=== PATIENT | male | born 1960 | race Caucasian/White ===

== ENCOUNTER 2018-03-25 12:33 | Emergency (ER) | payer MEDICARE ==
[2018-03-25 13:02] VITALS: PULSE 71
[2018-03-25 13:34] VITALS: O2SAT 100
[2018-03-25] MEDS ORDERED: Phenergan 25 MG INJ IM ONE (13:39)
[2018-03-25] MEDS ORDERED: Hydromorphone 1 mg/ml Ampule IM ONE (13:39)
--- NOTE | 2018-03-25 13:39 | ERPHSYRPT ---
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 pt states knott present x 2 weeks same knott as his normal cluster knott. pt arrives p/w/d resp easy a @ox3 Physician History: 57 y/o white male with h/o cluster headache, presents with worsening headache over a 2 week period of time. usually, clears up with oxygen therapy. however, pt out of oxygen and cannot find a company to fill his own tanks. he has rx for oxygen. sx worsenig to include pain and vomiting. denies being the worst headache he has ever had. denies head injury. Timing/Duration: week(s) (2), worse Quality: throbbing Head Pain Location: global Severity of Pain-Max: moderate Severity of Pain-Current: moderate Recent Head Trauma: no recent headache/trauma, chronic headaches Modifying Factors: Improves With: exposure to light (worsens) Associated Symptoms: nausea/vomiting, sensitive to light, No confusion, No dizziness, No fatigue, No facial pain, No fever/chills, No flushing, No light- headedness, No loss of consciousness, No nasal congestion, No nasal drainage, No neck pain, No seizures, No speech problems, No stiff neck, No visual disturbance, No weakness Previous symptoms: same symptoms as today Allergies/Adverse Reactions: codeine Adverse Reaction (Verified 03/25/18 13:02) Home Medications: Alprazolam [Xanax] 0.5 mg PO BID 03/25/18 [History] Citalopram Hydrobromide [Citalopram HBr] 20 mg PO DAILY 03/25/18 [History] Dronabinol [Marinol] 5 mg PO BID 03/25/18 [History] Esomeprazole Magnesium [Nexium] 40 mg PO DAILY 03/25/18 [History] Gabapentin 300 mg PO TID 03/25/18 [History] Rosuvastatin Calcium [Crestor] 20 mg PO DAILY 03/25/18 [History] Verapamil HCl Sr 240 mg [Isoptin S.r. 240 mg] 240 mg PO DAILY 03/25/18 [ History] Hx Influenza Vaccination/Date Given: No - Review of Systems Constitutional: No Symptoms Eyes: Photophobia Ears, Nose, & Throat: No Symptoms Respiratory: No Symptoms Cardiac: No Symptoms Abdominal/Gastrointestinal: Nausea, Vomiting Genitourinary Symptoms: No Symptoms, No Dysuria, No Frequency, No Hematuria Musculoskeletal: No Symptoms, No Arthralgias, No Back Pain, No Neck Pain Skin: No Symptoms Neurological: No Symptoms Psychological: No Symptoms Endocrine: No Symptoms Hematologic/Lymphatic: No Symptoms Immunological/Allergic: No Symptoms All Other Systems: Reviewed and Negative - Past Medical History Pertinent Past Medical History: Yes Neurological History: Migraines, Other ENT History: No Pertinent History Cardiac History: No Pertinent History Respiratory History: No Pertinent History Endocrine Medical History: No Pertinent History Musculoskeletal History: No Pertinent History GI Medical History: No Pertinent History History: No Pertinent History Psycho-Social History: No Pertinent History Male Reproductive Disorders: No Pertinent History Other Medical History: cluster knott - Past Surgical History Past Surgical History: Yes Neuro Surgical History: No Pertinent History Cardiac: No Pertinent History Respiratory: No Pertinent History Gastrointestinal: No Pertinent History Genitourinary: No Pertinent History Other Surgical History: righ knee - Social History Smoking Status: Current every day smoker - Nursing Vital Signs Nursing Vital Signs: Initial Vital Signs Temperature 98.1 F 03/25/18 12:54 Pulse Rate 71 03/25/18 12:54 Respiratory Rate 16 03/25/18 12:54 Blood Pressure 142/90 03/25/18 12:54 O2 Sat by Pulse Oximetry 92 L 03/25/18 12:54 Pain Scale Pain Intensity 3 - Physical Exam General Appearance: moderate distress, alert, anxiety, thin Eye Exam: PERRL/EOMI, eyes nml inspection Ears, Nose, Throat Exam: normal ENT inspection, TMs normal, moist mucous membranes Neck Exam: normal inspection, non-tender, supple, full range of motion Respiratory Exam: normal breath sounds, lungs clear, airway intact, No respiratory distress, No accessory muscle use, No rhonchi, No wheezing, No stridor Cardiovascular Exam: regular rate/rhythm, normal heart sounds, normal peripheral pulses Gastrointestinal/Abdominal Exam: soft, normal bowel sounds, No tenderness, No distention, No mass, No guarding, No rebound Back Exam: normal inspection, normal range of motion, CVA tenderness Extremity Exam: normal inspection, normal range of motion, pelvis stable Mental Status Exam: alert, oriented x 3, cooperative tire repair mechanic Exam: normal hearing, normal speech, PERRL Coordination/Gait Exam: normal finger to nose, normal gait Motor/Sensory Exam: no motor deficit, no sensory deficit, no pronator drift Skin Exam: normal color, warm, dry Lymphatic Exam: adenopathy SpO2 Interpretation: normal SpO2: 100 Oxygen Delivery: Room Air - Course Nursing assessment & vital signs reviewed: Yes Ordered Tests: Medication Summary Discontinued Medications Generic Name Dose Route Start Last Admin Trade Name Elliot PRN Reason Stop Dose Admin Hydromorphone HCl 1 mg 03/25/18 13:39 03/25/18 13:56 Hydromorphone 1 Mg/Ml Ampule IM 03/25/18 13:40 1 mg STAT ONE Administration Hydromorphone HCl Confirm 03/25/18 13:49 Hydromorphone 1 Mg/Ml Ampule Administered 03/25/18 13:50 Dose 1 mg .ROUTE .STK-MED ONE Promethazine HCl 25 mg 03/25/18 13:39 03/25/18 13:52 Phenergan 25 Mg Inj IM 03/25/18 13:40 25 mg STAT ONE Administration Promethazine HCl Confirm 03/25/18 13:49 Phenergan 25 Mg Inj Administered 03/25/18 13:50 Dose 25 mg .ROUTE .STK-MED ONE - Progress Progress: improved, re-examined Air Movement: good Progress Note: 03/25/18 14:10 contacted Traci in respiratory. she made contact with [facility] in order to fill pts oxygen tanks. pt is to contact them in order make arrangements if possible. Blood Culture(s) Obtained: No Antibiotics given: No Counseled pt/family regarding: diagnosis, need for follow-up - Departure Time of Disposition: 14:12 Departure Disposition: Home Clinical Impression: Cluster headache Condition: Stable Critical Care Time: No Additional Instructions: follow up with [facility] for oxygen. call your primary doctor for further management
[2018-03-25] MEDS ORDERED: Hydromorphone 1 mg/ml Ampule ONE (13:49)
[2018-03-25] MEDS ORDERED: Phenergan 25 MG INJ ONE (13:49)
[2018-03-25 14:21] VITALS: BP 133/85
== END 2018-03-25 14:21 | disposition home or self-care (01) ==
LOC: ED 12:33
DX: G44.009 Cluster headache syndrome, unspecified, not intractable (principal); R11.2 Nausea with vomiting, unspecified; Z79.899 Other long term (current) drug therapy
CPT/HCPCS: 96372; 99284; J1170; J2550

== ENCOUNTER 2023-08-08 06:38 | Emergency (ER) | payer MEDICARE ==
[2023-08-08] MEDS: NITRO-BID 2% UD PACKETS TOP ONE (06:45)
[2023-08-08] MEDS ORDERED: NITRO-BID 2% UD PACKETS ONE (06:46)
[2023-08-08] MEDS ORDERED: BABY ASPIRIN 81 MG CHEW ONE (06:54)
[2023-08-08] MEDS ORDERED: Sodium Chloride 0.9% 1000 ML 1,000 ML ONE (06:54)
[2023-08-08] MEDS ORDERED: HEPARIN 5000 UNITS/0.5 ML (HIGH RISK MED) ONE (06:54)
[2023-08-08 06:58] LABS: Absolute Neutrophil Ct (ANC) 8.03 x10^3/uL (1.4-6.9); BASOPHIL % 0.9 % (0.0-0.4); Basophil (Absolute #) 0.09 x10^3/uL (0-0.4); Eosinophil % 0.3 % (0.00-5.0); Eosinophil (Absolute #) 0.03 x10^3/uL (0-0.5); Hematocrit 40.8 % (42-50); Hemoglobin 11.4 g/dL (12.5-18.0); IMMATURE GRAN # 0.02 x10^3u/L (0.00-0.03); IMMATURE GRAN % 0.2 % (0.00-0.4); Lymphocyte (Absolute #) 1.61 x10^3/uL (1.0-4.6); Lymphocytes % 15.2 % (24.0-44.0); Mean Cell Volume 94.2 fL (78-100); Mean Corpuscular Hemoglobin 26.3 pg (26-32); Mean Corpuscular Hgb Concent. 27.9 g/dL (32-36); Mean Platelet Volume 11.6 fL (7.5-11.0); Monocyte (Absolute #) 0.78 x10^3/uL (0.0-1.3); Monocytes % 7.4 % (0.0-12.0); Platelet Count 176 x10^3/uL (150-450); Red Blood Count 4.33 x10^6/uL (4.1-5.6); Red Cell Distribution Width 19.9 % (11.5-14.0); White Blood Count 10.6 x10^3/uL (4.0-10.5)
[2023-08-08] MEDS: ECOTRIN 81 MG PO ONE (06:59)
--- NOTE | 2023-08-08 06:59 | ERPHSYRPT ---
- History of Present Illness Time Seen by Provider: 08/08/23 06:45 Historian: patient, family Exam Limitations: no limitations Physician History: This is a 63-year-old white male patient who has a significant smoking history and a significant family history of coronary artery disease. He also has a significant history of hyperlipidemia. He himself has never been diagnosed with coronary disease. He has had intermittent sharp substernal central chest pain that worsened this morning and became more constant. Patient arrives to the emergency department with chest pain and on arrival the initial twelve-lead EKG does show acute ST elevation in leads V4, V5, V6. Timing/Duration: intermittent (For the last 2 weeks), worse (Symptoms were worse and more intense this morning) Quality: sharpness, stabbing Location: substernal, central Chest Pain Radiation: no radiation Severity of Pain-Max: moderate Severity of Pain-Current: moderate Associated Symptoms: diaphoresis, other (Appears somewhat pale) Nitro Today/Relief: no nitro taken today Aspirin Treatment Today: no aspirin today, 81 mg x 4, provided by ED Allergies/Adverse Reactions: codeine Adverse Reaction (Verified 08/08/23 06:40) Home Medications: ALPRAZolam [Xanax] 0.5 mg PO BID 03/25/18 [History] Citalopram Hydrobromide [Citalopram HBr] 20 mg PO DAILY 03/25/18 [History] Esomeprazole Magnesium [Nexium] 40 mg PO DAILY 03/25/18 [History] Gabapentin 300 mg PO TID 03/25/18 [History] Rosuvastatin Calcium [Crestor] 20 mg PO DAILY 03/25/18 [History] Verapamil HCl Sr [Isoptin S.r. 240 mg] 240 mg PO DAILY 03/25/18 [History] dronabinoL [Marinol] 5 mg PO BID 03/25/18 [History] Hx Influenza Vaccination/Date Given: No Travel Risk - International Travel Have you traveled outside of the country in past 3 weeks: No - Emerging Infectious Disease Are you exhibiting symptoms associated with any current EIDs: No - Vaccine Status Hx Covid Vaccintation/Booster/Date Given: No - Review of Systems Constitutional: No Symptoms Eyes: No Symptoms Ears, Nose, & Throat: No Symptoms Respiratory: No Symptoms Cardiac: Chest Pain Abdominal/Gastrointestinal: No Symptoms Genitourinary Symptoms: No Symptoms Musculoskeletal: No Symptoms Skin: No Symptoms Neurological: No Symptoms Psychological: No Symptoms Endocrine: No Symptoms Hematologic/Lymphatic: No Symptoms Immunological/Allergic: No Symptoms All Other Systems: Reviewed and Negative - Past Medical History Pertinent Past Medical History: Yes Neurological History: Migraines, Other ENT History: No Pertinent History Cardiac History: No Pertinent History Respiratory History: No Pertinent History Endocrine Medical History: No Pertinent History Musculoskeletal History: No Pertinent History GI Medical History: No Pertinent History History: No Pertinent History Psycho-Social History: No Pertinent History Male Reproductive Disorders: No Pertinent History Other Medical History: cluster knott - Past Surgical History Past Surgical History: Yes Neuro Surgical History: No Pertinent History Cardiac: No Pertinent History Respiratory: No Pertinent History Gastrointestinal: No Pertinent History Genitourinary: No Pertinent History Other Surgical History: righ knee - Social History Smoking Status: Current every day smoker - Physical Exam General Appearance: no apparent distress, alert, anxiety Eye Exam: PERRL/EOMI, pale conjunctivae Ears, Nose, Throat Exam: normal ENT inspection, moist mucous membranes Neck Exam: normal inspection, non-tender, supple, full range of motion Respiratory Exam: normal breath sounds, chest tenderness, lungs clear, airway intact, No respiratory distress Cardiovascular Exam: tachycardia Gastrointestinal/Abdomen Exam: soft, normal bowel sounds, No tenderness Rectal Exam: not done Back Exam: normal inspection, normal range of motion, No CVA tenderness, No vertebral tenderness Extremity Exam: normal inspection, normal range of motion, pelvis stable Neurologic Exam: alert, oriented x 3, cooperative, rn medical surgical II-XII nml as tested, normal mood/affect, nml cerebellar function, nml station & gait, sensation nml Skin Exam: pale Lymphatic Exam: No adenopathy SpO2 Interpretation: normal O2 Delivery: Room Air - Course Nursing assessment & vital signs reviewed: Yes EKG Interpreted by Me: RATE, Sinus Tach, NORMAL AXIS, NORMAL INTERVALS, Other (This patient has acute anterior lateral lead ST elevation. He has a STEMI. I repeated a twelve-lead EKG in this finding is persistent.) Ordered Tests: Active Orders 24 hr Category Date Time Status Maintenance Welder STAT Care 08/08/23 06:50 Ordered EKG-ER Only STAT Care 08/08/23 06:50 Ordered IV Insertion STAT Care 08/08/23 06:50 Ordered CHEST 1 VIEW (PORTABLE) Stat Exams 08/08/23 06:50 Ordered CBC W DIFF Stat Lab 08/08/23 06:50 Ordered CMP Stat Lab 08/08/23 06:50 Ordered D-DIMER QUANTITATIVE Stat Lab 08/08/23 06:50 Ordered NT PRO BNPII Stat Lab 08/08/23 Ordered PROTIME WITH INR Stat Lab 08/08/23 06:50 Ordered TROPONIN Q4H Lab 08/08/23 07:00 Ordered TROPONIN Q4H Lab 08/08/23 11:00 Ordered TROPONIN Q4H Lab 08/08/23 15:00 Ordered Medication Summary Generic Name Dose Route Start Last Admin Trade Name Freq PRN Reason Stop Dose Admin Heparin Sodium (Beef Lung) 5,000 unit 08/08/23 06:51 Heparin 5000 Units/0.5 Ml 5,000 Unit/0.5 Ml Syr IV 08/08/23 06:52 STAT ONE Sodium Chloride 1,000 mls @ 50 mls/hr 08/08/23 07:00 Sodium Chloride 0.9% 1000 Ml IV 09/07/23 06:59 .Q20H PRASANNA Nitroglycerin 1 gm 08/08/23 06:50 Nitroglycerin 1 Gm Packet TOP 08/08/23 06:51 STAT ONE Discontinued Medications Generic Name Dose Route Start Last Admin Trade Name Freq PRN Reason Stop Dose Admin Nitroglycerin Confirm 08/08/23 06:46 Nitroglycerin 1 Gm Packet Administered 08/08/23 06:47 Dose 1 gm .ROUTE .STK-MED ONE - Progress Progress: re-examined Air Movement: good Progress Note: 08/08/23 07:07 This patient has a medical issue that is of high complexity. Level complex in the workup performed is based on review the patient's past medical history, the workup includes rapidly place intravenous line, provide the patient with low rate normal saline solution, Nitropaste, heparin 5000 units intravenous bolus, I activated the STEMI alert. I spoke with Dr. Guevara at [facility] emergency department. He requested that I text the twelve-lead EKGs x 2 that were performed to area code [phone]. He has accepted the patient in transfer. The second twelve-lead EKG was performed at 6:44 AM on 08/08/2023. It shows sinus rhythm at [address] is persistent [address] elevation in leads V4, V5, V6 and slow up word ST segment. Blood Culture(s) Obtained: No Antibiotics given: No Counseled pt/family regarding: diagnosis Medical Desision Making - Independent Historian Additional History obtained from: Spouse - Diagnostic Testing Diagnostic test were ordered, analyzed, and reviewed by me: Yes - Risk of complications The pt has a high risk of morbidity or mortality based on: Decision regarding hospitilization or escalation of hosp level of care - Departure Departure Disposition: Transfer Clinical Impression: ST elevation (STEMI) myocardial infarction involving left anterior descending coronary artery Condition: Fair Critical Care Time: Yes Critical Care Time(excluding separately billable procedures): Critical 30-74 mins (30 minutes) Referrals: DOCTOR,NO FAMILY [Primary Care Provider] - Follow up/PCP as directed
[2023-08-08 07:00] VITALS: TEMP 97.9
[2023-08-08] MEDS: HEPARIN 5000 UNITS/0.5 ML (HIGH RISK MED) IV ONE (07:00)
[2023-08-08] MEDS: Sodium Chloride 0.9% 1000 ML 1,000 ML IV SCH (07:00)
[2023-08-08 07:13] LABS: ALBUMIN 4.1 g/dL (3.5-5.0); ANION GAP 15.7 MEQ/L (5-15); BILIRUBIN,TOTAL 1.6 mg/dL (0.2-1.3); Calcium 8.8 mg/dL (8.4-10.2); EST GLOMERULAR FILTRATION RATE 83.5 ML/MIN; Potassium 4.3 mmol/L (3.5-5.1); Total Protein 8.5 g/dL (6.3-8.2)
[2023-08-08] MEDS ORDERED: MORPHINE SULFATE 2 MG INJ ONE (07:14)
[2023-08-08] MEDS: MORPHINE SULFATE 2 MG INJ IV ONE (07:16)
[2023-08-08 07:20] LABS: INR 1.08 (0.8-3.0); PROTIME 11.7 SECONDS (9.4-12.5)
[2023-08-08 07:21] VITALS: BP 167/99; PULSE 93; RESP 23; O2SAT 96
[2023-08-08] MEDS: Zofran 4 MG/2 ML VIAL IV ONE (07:21)
[2023-08-08 07:23] LABS: D-DIMER QUANTITATIVE 0.95 mg/L (0.0-0.50)
[2023-08-08 08:25] LABS: Slide Review 1 YES
--- NOTE | 2023-08-08 08:29 | XRAY ---
Indication: Chest pain. Comparison: None Portable chest hyperinflated without focal infiltrate, consolidation, or large effusion. Heart not enlarged for AP portable technique. Bony thorax intact with osteopenia and old right clavicle fracture. Impression: Nonacute hyperinflated chest.
== END 2023-08-08 07:15 | disposition short-term general hospital (02) ==
LOC: ED 06:38
DX: I21.3 ST elevation (STEMI) myocardial infarction of unspecified site (principal); R07.9 Chest pain, unspecified; E78.5 Hyperlipidemia, unspecified; Z79.899 Other long term (current) drug therapy; Z28.310 Unvaccinated for COVID-19; Z72.0 Tobacco use
CPT/HCPCS: 36000; 36415; 71045; 80053; 83880; 84484; 85025; 85379; 85610; 93005; 93041; 96374; 96375; 99285; 99291; J1644; J2270; A9270-GY

== ENCOUNTER 2023-09-09 13:41 | Emergency (ER) | payer MEDICARE ==
[2023-09-09 14:15] VITALS: TEMP 97.9
[2023-09-09 14:24] LABS: Absolute Neutrophil Ct (ANC) 3.21 x10^3/uL (1.4-6.9); BASOPHIL % 1.4 % (0.0-0.4); Basophil (Absolute #) 0.09 x10^3/uL (0-0.4); Eosinophil (Absolute #) 0.06 x10^3/uL (0-0.5); Hematocrit 29.6 % (42-50); Hemoglobin 8.5 g/dL (12.5-18.0); IMMATURE GRAN # 0.02 x10^3u/L (0.00-0.03); IMMATURE GRAN % 0.3 % (0.00-0.4); Lymphocyte (Absolute #) 2.36 x10^3/uL (1.0-4.6); Lymphocytes % 37.9 % (24.0-44.0); Mean Cell Volume 96.1 fL (78-100); Mean Corpuscular Hemoglobin 27.6 pg (26-32); Mean Corpuscular Hgb Concent. 28.7 g/dL (32-36); Mean Platelet Volume 12.6 fL (7.5-11.0); Monocyte (Absolute #) 0.49 x10^3/uL (0.0-1.3); Monocytes % 7.9 % (0.0-12.0); Neutrophil % 51.5 % (36.0-66.0); Platelet Count 100 x10^3/uL (150-450); Red Blood Count 3.08 x10^6/uL (4.1-5.6); Red Cell Distribution Width 22.2 % (11.5-14.0); White Blood Count 6.2 x10^3/uL (4.0-10.5)
[2023-09-09] MEDS ORDERED: DUONEB 0.5-3 MG/3 ml Neb IH ONE (14:27)
[2023-09-09] MEDS: DUONEB 0.5-3 MG/3 ml Neb IH ONE (14:32)
[2023-09-09 14:33] LABS: ALBUMIN 2.8 g/dL (3.5-5.0); ANION GAP 7.9 MEQ/L (5-15); BILIRUBIN,TOTAL 1.6 mg/dL (0.2-1.3); Calcium 7.8 mg/dL (8.4-10.2); Creatinine 1 1.74 mg/dL (0.66-1.25); MAGNESIUM 1.7 mg/dL (1.6-2.3); Potassium 4.1 mmol/L (3.5-5.1); Total Protein 6.3 g/dL (6.3-8.2)
[2023-09-09 14:35] LABS: INR 1.56 (0.8-3.0); PROTIME 16.5 SECONDS (9.4-12.5); PTT 31.3 SECONDS (25.1-36.5)
--- NOTE | 2023-09-09 14:39 | ERPHSYRPT ---
- History of Present Illness Time Seen by Provider: 09/09/23 14:10 Source: patient, family Exam Limitations: no limitations Patient Subjective Stated Complaint: Weakness Triage Nursing Assessment: Patient brought back to ED per w/c and transferred to bed with assist of 1. Patient A+O X3. Patient's skin pale, cool and dry. Patient complains of increased weakness for the last couple of days. Patient denies pain or discomfort. Patient initial O2 sat was 70% on room air. O2 at 2 liters per N/C. Physician History: 63-year-old male with history of coronary artery disease status post stenting recently, COPD/tobacco abuse, neuropathy, chronic back pain, anemia presented in the ER with 3 days history of increasing generalized weakness fatigue and tiredness. Patient is also getting more pale and gets short of breath with activity. Denies any chest pain or palpitations. No abdominal pain nausea vomiting. Denies any dark stool. No history of GI bleed. Patient is not taking any blood thinners. Patient oxygen saturation was in 70s on presentation but quickly improved to mid 90s with 2 L oxygen. Denies any fever or chills. Allergies/Adverse Reactions: codeine Adverse Reaction (Verified 09/09/23 14:03) Home Medications: ALPRAZolam [Xanax] 0.5 mg PO BID 03/25/18 [History] Citalopram Hydrobromide [Citalopram HBr] 20 mg PO DAILY 03/25/18 [History] Esomeprazole Magnesium [Nexium] 40 mg PO DAILY 03/25/18 [History] Gabapentin 300 mg PO TID 03/25/18 [History] Rosuvastatin Calcium [Crestor] 20 mg PO DAILY 03/25/18 [History] Verapamil HCl Sr [Isoptin S.r. 240 mg] 240 mg PO DAILY 03/25/18 [History] dronabinoL [Marinol] 5 mg PO BID 03/25/18 [History] Hx Tetanus, Diphtheria Vaccination/Date Given: No Hx Influenza Vaccination/Date Given: No Hx Pneumococcal Vaccination/Date Given: No Immunizations Up to Date: Yes Travel Risk - International Travel Have you traveled outside of the country in past 3 weeks: No - Emerging Infectious Disease Are you exhibiting symptoms associated with any current EIDs: No - Review of Systems Constitutional: Fatigue, Weakness Eyes: No Symptoms Ears, Nose, & Throat: No Symptoms Respiratory: Dyspnea, Dyspnea on Exertion (KELLEY), Wheezing Cardiac: No Symptoms Abdominal/Gastrointestinal: No Symptoms Genitourinary Symptoms: No Symptoms Musculoskeletal: Back Pain Skin: No Symptoms Neurological: No Symptoms Psychological: No Symptoms Endocrine: No Symptoms Immunological/Allergic: No Symptoms - Past Medical History Pertinent Past Medical History: Yes Neurological History: Migraines, Other ENT History: No Pertinent History Cardiac History: No Pertinent History Respiratory History: No Pertinent History Endocrine Medical History: No Pertinent History Musculoskeletal History: No Pertinent History GI Medical History: No Pertinent History History: No Pertinent History Psycho-Social History: No Pertinent History Male Reproductive Disorders: No Pertinent History Other Medical History: [place] - Past Surgical History Past Surgical History: Yes Neuro Surgical History: No Pertinent History Cardiac: No Pertinent History Respiratory: No Pertinent History Gastrointestinal: No Pertinent History Genitourinary: No Pertinent History Other Surgical History: righ knee - Social History Smoking Status: Current every day smoker How long have you smoked: years Exposure to second hand smoke: No Drug Use: marijuana - Nursing Vital Signs Nursing Vital Signs: Initial Vital Signs Temperature 97.9 F 09/09/23 14:04 Pulse Rate 55 L 09/09/23 14:04 Respiratory Rate 18 09/09/23 14:04 Blood Pressure 125/71 09/09/23 14:04 O2 Sat by Pulse Oximetry 100 09/09/23 14:04 Pain Scale Pain Intensity 0 - Physical Exam General Appearance: no apparent distress, alert Eye Exam: PERRL/EOMI, pale conjunctivae Ears, Nose, Throat Exam: normal ENT inspection Neck Exam: normal inspection, non-tender, supple, full range of motion Respiratory Exam: normal breath sounds, lungs clear Cardiovascular Exam: regular rate/rhythm, normal heart sounds Gastrointestinal/Abdomen Exam: soft, normal bowel sounds, No tenderness Back Exam: normal inspection Extremity Exam: normal inspection, normal range of motion Neurologic Exam: alert, oriented x 3, cooperative Skin Exam: pale SpO2 Interpretation: O2 applied SpO2: 100 O2 Delivery: Nasal Cannula - Course EKG Interpreted by Me: RATE (55), Sinus Rhythm, NORMAL AXIS, prolonged QT interval, Other (Wave inversion in lateral leads) Ordered Tests: Active Orders 24 hr Category Date Time Status Technology Architect STAT Care 09/09/23 14:11 Active EKG-ER Only STAT Care 09/09/23 14:11 Active IV Insertion STAT Care 09/09/23 14:11 Active IV Insertion-2nd Peripheral STAT Care 09/09/23 14:23 Active Oxygen-ED Only Nasal Cannula 2 lpm Care 09/09/23 14:11 Active ABDOMEN AND PELVIS W/0 CONTRAS [CT] Stat Exams 09/09/23 14:40 Completed CHEST 1 VIEW (PORTABLE) Stat Exams 09/09/23 14:11 Completed CHEST WITHOUT CONTRAST [CT] Stat Exams 09/09/23 14:40 Completed BLOOD CULTURE Stat Lab 09/09/23 14:20 Received CBC W DIFF Stat Lab 09/09/23 14:19 Completed CMP Stat Lab 09/09/23 14:19 Completed CULTURE,URINE Stat Lab 09/09/23 16:07 Received Lactic Acid Stat Lab 09/09/23 14:20 Completed Lactic Acid Stat Lab 09/09/23 16:21 Completed MAGNESIUM Stat Lab 09/09/23 14:19 Completed NT PRO BNPII Stat Lab 09/09/23 14:19 Completed PROTIME WITH INR Stat Lab 09/09/23 14:19 Completed PTT Stat Lab 09/09/23 14:19 Completed TROPONIN Q4H Lab 09/09/23 14:19 Completed TROPONIN Q4H Lab 09/09/23 17:45 Received TROPONIN Q4H Lab 09/09/23 22:15 Ordered UA W/RFX UR CULTURE Stat Lab 09/09/23 16:07 Completed Respiratory Therapy Assessment DAILY RT 09/09/23 14:37 Active Medication Summary Generic Name Dose Route Start Last Admin Trade Name Freq PRN Reason Stop Dose Admin Pantoprazole Sodium 80 mg/ 500 mls @ 50 mls/hr 09/09/23 15:00 09/09/23 14:59 Sodium Chloride IV 10/09/23 14:59 50 ml/hr .Q10H PRASANNA 50 mls/hr Administration Discontinued Medications Generic Name Dose Route Start Last Admin Trade Name Freq PRN Reason Stop Dose Admin Albuterol/Ipratropium 3 ml 09/09/23 14:11 09/09/23 14:32 Ipratropium/Albuterol Sulfate 3 Ml Ampul.Neb IH 09/09/23 14:12 3 ml STAT ONE Administration Albuterol/Ipratropium Confirm 09/09/23 14:27 Ipratropium/Albuterol Sulfate 3 Ml Ampul.Neb Administered 09/09/23 14:28 Dose 3 ml IH .STK-MED ONE Furosemide 40 mg 09/09/23 17:33 09/09/23 17:36 Furosemide 40 Mg/4 Ml Vial IV 09/09/23 17:34 40 mg STAT ONE Administration Furosemide Confirm 09/09/23 17:34 Furosemide 40 Mg/4 Ml Vial Administered 09/09/23 17:35 Dose 40 mg .ROUTE .STK-MED ONE Sodium Chloride 1,000 mls @ 999 mls/hr 09/09/23 14:39 09/09/23 17:39 Sodium Chloride 0.9% 1000 Ml IV 09/09/23 15:39 50 mls/hr .Q1H1M STA Infusion Sodium Chloride Confirm 09/09/23 14:42 Sodium Chloride 0.9% 1000 Ml Administered 09/09/23 14:43 Dose 1,000 mls @ ud .ROUTE .STK-MED ONE Sodium Chloride Confirm 09/09/23 14:52 Sodium Chloride 0.9% 500 Ml Administered 09/09/23 14:53 Dose 500 mls @ ud IV .STK-MED ONE Azithromycin 500 mg in 250 mls @ 250 mls/hr 09/09/23 15:22 09/09/23 16:45 Zithromax 500 Mg/ 250 Ml Nacl Premix IV 09/09/23 16:21 Infused STAT STA Infusion Ceftriaxone Sodium 2 gm in 100 mls @ 200 mls/hr 09/09/23 15:22 09/09/23 16:17 Rocephin 2 Gm/100 Ml Nacl IV 09/09/23 15:51 Infused STAT ONE Infusion Azithromycin Confirm 09/09/23 15:37 Zithromax 500 Mg/ 250 Ml Nacl Premix Administered 09/09/23 15:38 Dose 500 mg in 250 mls @ ud IV .STK-MED ONE Ceftriaxone Sodium Confirm 09/09/23 15:37 Rocephin 2 Gm/100 Ml Nacl Administered 09/09/23 15:38 Dose 2 gm in 100 mls @ ud IV .STK-MED ONE Pantoprazole Sodium 80 mg 09/09/23 14:49 09/09/23 14:59 Pantoprazole 40 Mg Vial IV 09/09/23 14:50 80 mg STAT ONE Administration Pantoprazole Sodium Confirm 09/09/23 14:52 Pantoprazole 40 Mg Vial Administered 09/09/23 14:53 Dose 160 mg IV .STK-MED ONE Lab/Rad Data: Laboratory Result Diagrams 09/09/23 14:19 09/09/23 14:19 Laboratory Results 09/09/23 09/09/23 09/09/23 Range/Units 17:45 16:21 16:07 WBC (4.0-10.5) x10^3/uL RBC (4.1-5.6) x10^6/uL Hgb (12.5-18.0) g/dL Hct (42-50) % MCV (78-100) fL MCH (26-32) pg MCHC (32-36) g/dL RDW (11.5-14.0) % Plt Count (150-450) x10^3/uL MPV (7.5-11.0) fL Gran % (36.0-66.0) % Immature Gran % (Auto) (0.00-0.4) % Nucleat RBC Rel Count (0.00-0.1) % Eos # (Auto) (0-0.5) x10^3/uL Immature Gran # (Auto) (0.00-0.03) x10^3u/L Absolute Lymphs (auto) (1.0-4.6) x10^3/uL Absolute Monos (auto) (0.0-1.3) x10^3/uL Absolute Nucleated RBC (0.00-0.01) x10^3u/L Lymphocytes % (24.0-44.0) % Monocytes % (0.0-12.0) % Eosinophils % (0.00-5.0) % Basophils % (0.0-0.4) % Absolute Granulocytes (1.4-6.9) x10^3/uL Basophils # (0-0.4) x10^3/uL PT (9.4-12.5) SECONDS INR (0.8-3.0) APTT (25.1-36.5) SECONDS Sodium (135-145) mmol/L Potassium (3.5-5.1) mmol/L Chloride (98-107) mmol/L Carbon Dioxide (22-30) mmol/L Anion Gap (5-15) MEQ/L BUN (9-20) mg/dL Creatinine (0.66-1.25) mg/dL Estimated GFR ML/MIN Glucose (74-106) mg/dL Lactic Acid 1.2 (0.4-2.0) Calcium (8.4-10.2) mg/dL Magnesium (1.6-2.3) mg/dL Total Bilirubin (0.2-1.3) mg/dL AST (17-59) U/L ALT (0-50) U/L Alkaline Phosphatase (38-126) U/L Troponin I 0.068 H* (0.000-0.033) ng/mL NT-Pro-B Natriuret Pep (<300) pg/mL Serum Total Protein (6.3-8.2) g/dL Albumin (3.5-5.0) g/dL Urine Color Dark Yellow (Yellow) Urine Appearance Cloudy A (Clear) Urine pH 6.0 (4.6-8.0) Ur Specific [place] >=1.030 A (1.005-1.030) Urine Protein 300 A (Negative) Urine Glucose (UA) Negative (Negative) mg/dL Urine Ketones Negative (Negative) Urine Blood Large A (Negative) Urine Nitrite Negative (Negative) Urine Bilirubin Small A (Negative) Urine Urobilinogen 1.0 A (0.2) mg/dL Ur Leukocyte Esterase Trace A (Negative) U Hyaline Cast (Auto) 11-20 (0-2) /LPF Urine Microscopic RBC 0-2 (0-5) /HPF Urine Microscopic WBC 0-2 (0-5) /HPF Ur Epithelial Cells Moderate A (None Seen) /HPF Urine Bacteria None Seen (None Seen) /HPF Urine Culture Reflexed YES (NO) Influenza Type A Ag (NEGATIVE) Influenza Type B Ag (NEGATIVE) RSV (PCR) (NEGATIVE) SARS-CoV-2 (PCR) (NEGATIVE) Slides for Path Review ABO Group Rh Factor Antibody Screen (NEGATIVE) 09/09/23 09/09/23 09/09/23 Range/Units 14:36 14:20 14:19 WBC (4.0-10.5) x10^3/uL RBC (4.1-5.6) x10^6/uL Hgb (12.5-18.0) g/dL Hct (42-50) % MCV (78-100) fL MCH (26-32) pg MCHC (32-36) g/dL RDW (11.5-14.0) % Plt Count (150-450) x10^3/uL MPV (7.5-11.0) fL Gran % (36.0-66.0) % Immature Gran % (Auto) (0.00-0.4) % Nucleat RBC Rel Count (0.00-0.1) % Eos # (Auto) (0-0.5) x10^3/uL Immature Gran # (Auto) (0.00-0.03) x10^3u/L Absolute Lymphs (auto) (1.0-4.6) x10^3/uL Absolute Monos (auto) (0.0-1.3) x10^3/uL Absolute Nucleated RBC (0.00-0.01) x10^3u/L Lymphocytes % (24.0-44.0) % Monocytes % (0.0-12.0) % Eosinophils % (0.00-5.0) % Basophils % (0.0-0.4) % Absolute Granulocytes (1.4-6.9) x10^3/uL Basophils # (0-0.4) x10^3/uL PT (9.4-12.5) SECONDS INR (0.8-3.0) APTT (25.1-36.5) SECONDS Sodium (135-145) mmol/L Potassium (3.5-5.1) mmol/L Chloride (98-107) mmol/L Carbon Dioxide (22-30) mmol/L Anion Gap (5-15) MEQ/L BUN (9-20) mg/dL Creatinine (0.66-1.25) mg/dL Estimated GFR ML/MIN Glucose (74-106) mg/dL Lactic Acid 2.6 H (0.4-2.0) Calcium (8.4-10.2) mg/dL Magnesium (1.6-2.3) mg/dL Total Bilirubin (0.2-1.3) mg/dL AST (17-59) U/L ALT (0-50) U/L Alkaline Phosphatase (38-126) U/L Troponin I 0.060 H* (0.000-0.033) ng/mL NT-Pro-B Natriuret Pep 79206 (<300) pg/mL Serum Total Protein (6.3-8.2) g/dL Albumin (3.5-5.0) g/dL Urine Color (Yellow) Urine Appearance (Clear) Urine pH (4.6-8.0) Ur Specific [place] (1.005-1.030) Urine Protein (Negative) Urine Glucose (UA) (Negative) mg/dL Urine Ketones (Negative) Urine Blood (Negative) Urine Nitrite (Negative) Urine Bilirubin (Negative) Urine Urobilinogen (0.2) mg/dL Ur Leukocyte Esterase (Negative) U Hyaline Cast (Auto) (0-2) /LPF Urine Microscopic RBC (0-5) /HPF Urine Microscopic WBC (0-5) /HPF Ur Epithelial Cells (None Seen) /HPF Urine Bacteria (None Seen) /HPF Urine Culture Reflexed (NO) Influenza Type A Ag NEGATIVE (NEGATIVE) Influenza Type B Ag NEGATIVE (NEGATIVE) RSV (PCR) NEGATIVE (NEGATIVE) SARS-CoV-2 (PCR) NEGATIVE (NEGATIVE) Slides for Path Review ABO Group Rh Factor Antibody Screen (NEGATIVE) 09/09/23 09/09/23 09/09/23 Range/Units 14:19 14:19 14:19 WBC (4.0-10.5) x10^3/uL RBC (4.1-5.6) x10^6/uL Hgb (12.5-18.0) g/dL Hct (42-50) % MCV (78-100) fL MCH (26-32) pg MCHC (32-36) g/dL RDW (11.5-14.0) % Plt Count (150-450) x10^3/uL MPV (7.5-11.0) fL Gran % (36.0-66.0) % Immature Gran % (Auto) (0.00-0.4) % Nucleat RBC Rel Count (0.00-0.1) % Eos # (Auto) (0-0.5) x10^3/uL Immature Gran # (Auto) (0.00-0.03) x10^3u/L Absolute Lymphs (auto) (1.0-4.6) x10^3/uL Absolute Monos (auto) (0.0-1.3) x10^3/uL Absolute Nucleated RBC (0.00-0.01) x10^3u/L Lymphocytes % (24.0-44.0) % Monocytes % (0.0-12.0) % Eosinophils % (0.00-5.0) % Basophils % (0.0-0.4) % Absolute Granulocytes (1.4-6.9) x10^3/uL Basophils # (0-0.4) x10^3/uL PT 16.5 H (9.4-12.5) SECONDS INR 1.56 (0.8-3.0) APTT 31.3 (25.1-36.5) SECONDS Sodium 143 (135-145) mmol/L Potassium 4.1 (3.5-5.1) mmol/L Chloride 106 (98-107) mmol/L Carbon Dioxide 33 H (22-30) mmol/L Anion Gap 7.9 (5-15) MEQ/L BUN 24 H (9-20) mg/dL Creatinine 1.74 H (0.66-1.25) mg/dL Estimated GFR 43.0 ML/MIN Glucose 112 H (74-106) mg/dL Lactic Acid (0.4-2.0) Calcium 7.8 L (8.4-10.2) mg/dL Magnesium 1.7 (1.6-2.3) mg/dL Total Bilirubin 1.60 H (0.2-1.3) mg/dL AST 698 H (17-59) U/L ALT 327 H (0-50) U/L Alkaline Phosphatase 146 H (38-126) U/L Troponin I (0.000-0.033) ng/mL NT-Pro-B Natriuret Pep (<300) pg/mL Serum Total Protein 6.3 (6.3-8.2) g/dL Albumin 2.8 L (3.5-5.0) g/dL Urine Color (Yellow) Urine Appearance (Clear) Urine pH (4.6-8.0) Ur Specific [place] (1.005-1.030) Urine Protein (Negative) Urine Glucose (UA) (Negative) mg/dL Urine Ketones (Negative) Urine Blood (Negative) Urine Nitrite (Negative) Urine Bilirubin (Negative) Urine Urobilinogen (0.2) mg/dL Ur Leukocyte Esterase (Negative) U Hyaline Cast (Auto) (0-2) /LPF Urine Microscopic RBC (0-5) /HPF Urine Microscopic WBC (0-5) /HPF Ur Epithelial Cells (None Seen) /HPF Urine Bacteria (None Seen) /HPF Urine Culture Reflexed (NO) Influenza Type A Ag (NEGATIVE) Influenza Type B Ag (NEGATIVE) RSV (PCR) (NEGATIVE) SARS-CoV-2 (PCR) (NEGATIVE) Slides for Path Review ABO Group O Rh Factor POSITIVE Antibody Screen NEGATIVE (NEGATIVE) 09/09/23 Range/Units 14:19 WBC 6.2 (4.0-10.5) x10^3/uL RBC 3.08 L (4.1-5.6) x10^6/uL Hgb 8.5 L (12.5-18.0) g/dL Hct 29.6 L (42-50) % MCV 96.1 (78-100) fL MCH 27.6 (26-32) pg MCHC 28.7 L (32-36) g/dL RDW 22.2 H (11.5-14.0) % Plt Count 100 L (150-450) x10^3/uL MPV 12.6 H (7.5-11.0) fL Gran % 51.5 (36.0-66.0) % Immature Gran % (Auto) 0.3 (0.00-0.4) % Nucleat RBC Rel Count 0.0 (0.00-0.1) % Eos # (Auto) 0.06 (0-0.5) x10^3/uL Immature Gran # (Auto) 0.02 (0.00-0.03) x10^3u/L Absolute Lymphs (auto) 2.36 (1.0-4.6) x10^3/uL Absolute Monos (auto) 0.49 (0.0-1.3) x10^3/uL Absolute Nucleated RBC 0.00 (0.00-0.01) x10^3u/L Lymphocytes % 37.9 (24.0-44.0) % Monocytes % 7.9 (0.0-12.0) % Eosinophils % 1.0 (0.00-5.0) % Basophils % 1.4 (0.0-0.4) % Absolute Granulocytes 3.21 (1.4-6.9) x10^3/uL Basophils # 0.09 (0-0.4) x10^3/uL PT (9.4-12.5) SECONDS INR (0.8-3.0) APTT (25.1-36.5) SECONDS Sodium (135-145) mmol/L Potassium (3.5-5.1) mmol/L Chloride (98-107) mmol/L Carbon Dioxide (22-30) mmol/L Anion Gap (5-15) MEQ/L BUN (9-20) mg/dL Creatinine (0.66-1.25) mg/dL Estimated GFR ML/MIN Glucose (74-106) mg/dL Lactic Acid (0.4-2.0) Calcium (8.4-10.2) mg/dL Magnesium (1.6-2.3) mg/dL Total Bilirubin (0.2-1.3) mg/dL AST (17-59) U/L ALT (0-50) U/L Alkaline Phosphatase (38-126) U/L Troponin I (0.000-0.033) ng/mL NT-Pro-B Natriuret Pep (<300) pg/mL Serum Total Protein (6.3-8.2) g/dL Albumin (3.5-5.0) g/dL Urine Color (Yellow) Urine Appearance (Clear) Urine pH (4.6-8.0) Ur Specific [place] (1.005-1.030) Urine Protein (Negative) Urine Glucose (UA) (Negative) mg/dL Urine Ketones (Negative) Urine Blood (Negative) Urine Nitrite (Negative) Urine Bilirubin (Negative) Urine Urobilinogen (0.2) mg/dL Ur Leukocyte Esterase (Negative) U Hyaline Cast (Auto) (0-2) /LPF Urine Microscopic RBC (0-5) /HPF Urine Microscopic WBC (0-5) /HPF Ur Epithelial Cells (None Seen) /HPF Urine Bacteria (None Seen) /HPF Urine Culture Reflexed (NO) Influenza Type A Ag (NEGATIVE) Influenza Type B Ag (NEGATIVE) RSV (PCR) (NEGATIVE) SARS-CoV-2 (PCR) (NEGATIVE) Slides for Path Review YES ABO Group Rh Factor Antibody Screen (NEGATIVE) - Progress Progress: improved Progress Note: 09/09/23 18:16 63-year-old is evaluated for shortness of breath, generalized weakness with no chest pain. Patient was hypoxic but rapidly improved to 95% on 2 to 3 L oxygen. Chest x-ray showed left-sided infiltrative process. He is given DuoNeb and a dose of Rocephin and Zithromax. Patient was orthostatic positive and given a 500 mL of normal saline bolus and his blood pressure improved in 140s. Workup showed normal white count, hemoglobin of 8.5 which according to was 9.5 on 411. Patient had a thorough workup done at [facility] and home and was found out to be negative GI bleed. He was complaining of some abdominal discomfort and I have given him Protonix and started on Protonix drip as well. Chemistry showed acute renal failure with a baseline creatinine of 1 and today 1.7. I have obtained CT chest which is consistent with pulmonary edema/CHF decompensated and since patient blood pressure is improved, he is given 40 mg IV Lasix. I believe patient has some element of sleep apnea and his oxygen drops while he is asleep. We will try CPAP. Initial troponins are 0.06 but patient denies any chest pain, I believe it is related to CHF exacerbation. Patient also has a total bili of 1.6 which is unchanged from labs almost a month ago but has AST and ALT in 600s & 300s which are markedly elevated compared to previous labs. CT also showed cirrhotic changes in the liver with tiny abdominal pelvic ascites and no other acute intra-abdominal pelvic findings. I believe patient would benefit with inpatient placement at a facility with cardiology, pulmonary/GI/nephrology services. I have shared the results of workup with patient and family who understand and agree with going to [facility]. I have called and discussed with Dr. Arizmendi at [facility], patient is excepted for admission. Based on patient's history, workup, intervention, review of data and multiple comorbidities and active issues it is 1 of high level complexity. 09/09/23 18:[address] Other (Dr. Kyleigh Hurley [facility]) Will see patient in: ED Counseled pt/family regarding: lab results, diagnosis, need for follow-up, rad results, smoking cessation Medical Desision Making - Independent Historian Additional History obtained from: Spouse - Discussion of managment Care discussed with:: on-call "doc" (Dr. Kyleigh Hurley [facility] Reviewed:: Test results Agreed on:: Treatment plan Will see patient: in ED - Diagnostic Testing Diagnostic test were ordered, analyzed, and reviewed by me: Yes Radiological Interpretation: Reviewed by me - Risk of complications The pt has a high risk of morbidity or mortality based on: Decision regarding hospitilization or escalation of hosp level of care - Departure Departure Disposition: Transfer Clinical Impression: Acute exacerbation of CHF (congestive heart failure), Acute renal failure (ARF), Respiratory failure, Elevated transaminase level, Symptomatic anemia, Ascites, Cirrhosis Condition: Fair Critical Care Time: Yes Critical Care Time(excluding separately billable procedures): Critical 30-74 mins Referrals: DOCTOR,NO FAMILY [Primary Care Provider] - Follow up/PCP as directed Instructions: Heart Failure
[2023-09-09] MEDS ORDERED: Sodium Chloride 0.9% 1000 ML 1,000 ML ONE (14:42)
--- NOTE | 2023-09-09 14:43 | XRAY ---
Indication: Short of breath. Weakness. Comparison: August 08, 2023 Portable chest demonstrates new small focus right infrahilar infiltrate/atelectasis. Left lung remains clear. Heart now borderline enlarged
[2023-09-09] MEDS: Sodium Chloride 0.9% 1000 ML 1,000 ML IV STA (14:44)
[2023-09-09] MEDS ORDERED: Sodium Chloride 0.9% 500 ML 500 ML IV ONE (14:52)
[2023-09-09] MEDS ORDERED: PROTONIX 40 MG IV IV ONE (14:52)
[2023-09-09 14:58] LABS: ABO TYPING O; Antibody Screen NEGATIVE (NEGATIVE); RH TYPING POSITIVE
[2023-09-09] MEDS: PROTONIX 40 MG IV*** 80 MG in Sodium Chloride 0.9% 500 ML 500 ML IV SCH (14:59)
[2023-09-09] MEDS: PROTONIX 40 MG IV IV ONE (14:59)
[2023-09-09 15:07] LABS: TROPONIN 0.06 ng/mL (0.000-0.033)
[2023-09-09 15:14] LABS: INFLUENZA A NEGATIVE (NEGATIVE); INFLUENZA B NEGATIVE (NEGATIVE); RESPIRATORY SYNCTIAL VIRUS NEGATIVE (NEGATIVE); SARS-CoV-2 Xpert Express NEGATIVE (NEGATIVE)
[2023-09-09 15:23] LABS: Slide Review 1 YES
[2023-09-09] MEDS ORDERED: ROCEPHIN 2 GM/100 ML NACL 2 GM/100 ML IVPB IV ONE (15:37)
[2023-09-09] MEDS ORDERED: Zithromax 500 MG/ 250 ML NaCl Premix 500 MG/250 ML IVPB IV ONE (15:37)
[2023-09-09] MEDS: Zithromax 500 MG/ 250 ML NaCl Premix 500 MG/250 ML IVPB IV STA (15:45)
[2023-09-09] MEDS: ROCEPHIN 2 GM/100 ML NACL 2 GM/100 ML IVPB IV ONE (15:47)
[2023-09-09 16:28] LABS: ADD URINE CULTURE? YES (NO); Appearance Cloudy (Clear); Bacteria None Seen /HPF (None Seen); Bilirubin Small (Negative); Blood Large (Negative); Epithelial Cells Moderate /HPF (None Seen); Glucose, Urine Negative (Negative); Ketones Negative (Negative); Leukocyte Esterase Trace (Negative); Nitrite Negative (Negative); Protein,Urine Dip 300 (Negative); RBC 0-2 /HPF (0-5); Specific Gravity >=1.030 (1.005-1.030); WBC 0-2 /HPF (0-5)
--- NOTE | 2023-09-09 16:31 | XRAY ---
Indication: Short of breath, abdomen pain, and weakness. Multiple contiguous axial images obtained through the chest without contrast. Comparison: None Heart is borderline enlarged with scattered coronary calcifications/stents. Aorta minimally arteriosclerotic without aneurysm. Tiny mediastinal and right hilar calcified nodes. No pathologic mediastinal lymphadenopathy. Lungs demonstrates mild pulmonary edema with small bibasilar effusions and mild bibasilar compressive atelectasis. Also mild pulmonary emphysema especially upper lobes. Bony thorax intact. CT abdomen/pelvis reported separately. Impression: Borderline cardiomegaly with pulmonary edema and small bilateral effusions/atelectasis. Rule out cardiac decompensation/CHF versus fluid overload. Superimposed pneumonia not completely excluded.
--- NOTE | 2023-09-09 16:35 | XRAY ---
Indication: Short of breath, abdomen pain, and weakness. Multiple contiguous axial images obtained through the abdomen and pelvis without contrast. Comparison: None CT chest reported separately. Noncontrasted stomach and bowel loops appear nonobstructed with normal appearing appendix. Mild sigmoid diverticulosis without diverticulitis. Liver demonstrates micronodular margins favoring cirrhosis. Tiny abdominal and pelvic free fluid but no walled off fluid collection or free air. A few tiny splenic calcified granulomas. Remaining liver, gallbladder, pancreas, spleen, adrenal glands, kidneys, ureters, and bladder are unremarkable for noncontrast exam. Mild scattered aortoiliac calcifications without AAA. Osseous structures intact with mild degenerative changes throughout lumbar spine. Subacute to chronic appearing L2 compression fracture with 50-75% height loss. Impression: 1. Cirrhotic liver with tiny abdominal/pelvic ascites. 2. Chronic findings including sigmoid diverticulosis, arteriosclerotic disease, chronic bony findings, and old granulomatous disease. 3. Remaining CT abdomen/pelvis without contrast exam is negative.
[2023-09-09] MEDS ORDERED: Lasix 40 MG/4 ML ONE (17:34)
[2023-09-09] MEDS: Lasix 40 MG/4 ML IV ONE (17:36)
[2023-09-09 18:26] VITALS: O2SAT 100
[2023-09-09 18:32] VITALS: BP 141/80; PULSE 52; RESP 8
== END 2023-09-09 18:44 | disposition short-term general hospital (02) ==
LOC: ED 13:41
DX: I50.9 Heart failure, unspecified (principal); J96.90 Respiratory failure, unspecified, unspecified whether with hypoxia or hypercapnia; N17.9 Acute kidney failure, unspecified; R79.89 Other specified abnormal findings of blood chemistry; D64.9 Anemia, unspecified; R53.1 Weakness; K74.60 Unspecified cirrhosis of liver; I25.10 Atherosclerotic heart disease of native coronary artery without angina pectoris; F17.200 Nicotine dependence, unspecified, uncomplicated; R10.9 Unspecified abdominal pain; R18.8 Other ascites; R06.2 Wheezing
CPT/HCPCS: 0241U; 36000; 36415; 71045; 71250; 74176; 80053; 81001; 83605; 83735; 83880; 84484; 85025; 85610; 85730; 86850; 86900; 86901; 87040; 87086; 93005; 93041; 94640; 96365; 96367; 96374; 96375; 99285; 99291; J0456; J0696; J1940; A9270-GY